=== PATIENT | female | born 1970 | race Caucasian/White ===

== ENCOUNTER 2016-11-20 14:20 | Outpatient (CLI) | payer BC | END 2016-11-20 14:21 | disposition home or self-care (01) | DX: Z12.31 Encounter for screening mammogram for malignant neoplasm of breast (principal) ==

== ENCOUNTER 2018-03-26 15:43 | Outpatient (CLI) | payer BC ==
--- NOTE | 2018-03-31 11:59 | Mammography Report ---
DIGITAL SCREENING MAMMOGRAM: 03/26/2018 CLINICAL INDICATION: A 47-year-old for screening. COMPARISON: 11/2016, 07/2015, 07/2013, 06/2012. TECHNIQUE: Routine CC and MLO projections were obtained of the breasts. FINDINGS: Scattered fibroglandular tissue is present within the breasts. There are no dominant masses, suspicious microcalcifications, or secondary signs of malignancy. In comparison to the previous studies, there are no significant changes. IMPRESSION: NO MAMMOGRAPHIC EVIDENCE OF MALIGNANCY. NO SIGNIFICANT INTERVAL CHANGES. RECOMMENDATION: Screening mammography is recommended annually. BIRADS CATEGORY 1 - NEGATIVE. STANDARD QUALIFYING STATEMENTS: 1. This examination was reviewed with the aid of Computed-Aided Detection (CAD). 2. A negative or benign imaging report should not delay biopsy if clinically suspicious findings are present. Consider surgical consultation if warranted. More than 5% of cancers are not identified by imaging. 3. Dense breasts may obscure an underlying neoplasm. TD: 03/31/2018 11:45
== END 2018-03-26 15:44 | disposition home or self-care (01) ==
LOC: DI.N 15:43
PROVIDERS: ATTEND Physician Assistant Medical
DX: Z12.31 Encounter for screening mammogram for malignant neoplasm of breast (principal)
CPT/HCPCS: 77067

== ENCOUNTER 2019-05-15 10:15 | Outpatient (CLI) | payer OTHER ==
--- NOTE | 2019-05-15 15:25 | XRAY Report ---
Reason: LOW BACK PAIN,CHRONIC..PER ORDER 4VIEW Procedure Date: 05/15/2019 Accession Number: [id number] / [id number] Procedure: XR - Lumbar Spine Complete CPT Code: FULL RESULT: EXAM: LUMBOSACRAL SPINE RADIOGRAPHY EXAM DATE: 05/15/2019 11:25 AM. CLINICAL HISTORY: Chronic low back pain. COMPARISONS: None. TECHNIQUE: 4 views. FINDINGS: Alignment: Mild levoconvex scoliosis. The Vides angle from T11-L4 is approximately 9 degrees. Bones: Five awg-ovy-rrozfts lumbar vertebral bodies are present. No fractures or bone lesions. Disks: Mild to moderate L5-S1 disk space narrowing. Facets: L4-L5 and L5-S1 facet arthropathy. Sacroiliac Joints: Unremarkable. Soft Tissues: Normal. The visualized bowel gas pattern is normal. IMPRESSION: 1. Mild levoconvex scoliosis. 2. Mild to moderate L5-S1 disk space narrowing. 3. L4-L5 and L5-S1 facet arthropathy. RADIA
== END 2019-05-15 10:16 | disposition home or self-care (01) ==
LOC: DI 10:15
PROVIDERS: ATTEND Family Medicine
DX: M48.07 Spinal stenosis, lumbosacral region (principal); M41.86 Other forms of scoliosis, lumbar region
CPT/HCPCS: 72110

== ENCOUNTER 2019-06-08 08:53 | Emergency (ER) | payer BC, OTHER ==
[2019-06-08 09:03] VITALS: BP 195/110
--- NOTE | 2019-06-08 09:08 | ED Physician Documentation ---
PD HPI SKIN - Stated complaint Stated Complaint: LT ANKLE BITE - Chief complaint Chief Complaint: General - History obtained from History obtained from: Patient - History of Present Illness Timing - onset: How many days ago (few) Timing - duration: Days (few) Timing - details: Gradual onset, Still present Location: LLE (medial ankle with redness initially, that then expanded to demarcated redness with swelling about 2 cm diameter. No drainage. No fluctuance. Thought it might be bugbite. Not aware of bite per se.) Quality / character: Itchy, Burning, Discolored (red). No: Vesicular, Draining Associated symptoms: No: Fever, Myalgias, N/V/D Contributing factors: No: Exposed to Poison janet/oak, Insect bite /sting (did not get bug bite per se that she is aware of.) Similar symptoms before: Has not had sx before Recently seen: Not recently seen Review of Systems Constitutional: denies: Fever, Chills, Myalgias Cardiac: denies: Chest pain / pressure, Palpitations Respiratory: denies: Dyspnea, Cough GI: denies: Nausea, Vomiting PD PAST MEDICAL HISTORY - Past Medical History Past Medical History: No - Present Medications Home Medications: Ambulatory Orders Medication Instructions Recorded Confirmed Betamethasone Dipropionate 1 applic TP TID #15 cream..g. 06/08/19 Doxycycline Hyclate 100 mg PO BID #20 capsule 06/08/19 - Allergies Allergies/Adverse Reactions: Allergies Allergy/AdvReac Type Severity Reaction Status Date / Time Unable to Assess Allergy Verified 06/08/19 09:03 PD ED PE NORMAL - Vitals Vital signs reviewed: Yes - General General: Alert and oriented X 3, No acute distress, Well developed/nourished - HEENT HEENT: Ears normal, Pharynx benign - Neck Neck: Supple, no meningeal sign, No adenopathy - Cardiac Cardiac: RRR, No murmur - Respiratory Respiratory: Clear bilaterally - Abdomen Abdomen: Soft, Non tender - Extremities Extremities: Other (left medial ankle with redness and some swelling with demarcated edge of the redness in round shape. 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, No motor deficit, No sensory deficit Eye Opening: Spontaneous Motor: Obeys Commands Verbal: Oriented GCS Score: 15 - Psych Psych: Normal mood PD ED PE EXPANDED - General General: Alert, No acute distress, Well developed/nourished, Disheveled, poorly kept Results - Vitals Vitals: Vital Signs - 24 hr 06/08/19 09:02 Temperature 36.1 C L Heart Rate 82 Respiratory 20 Rate Blood Pressure 195/110 H O2 Saturation 99 Oxygen O2 Source Room air PD MEDICAL DECISION MAKING - ED course Complexity details: considered differential, d/w patient Departure - Departure Disposition: Home, Self Care Clinical Impression: Insect bite or sting Condition: Stable Record reviewed to determine appropriate education?: Yes Instructions: ED Bite Sting Insect Local Allergic React Follow-Up: Jany Adams PA-C [Primary Care Provider] - Prescriptions: Betamethasone Dipropionate 1 applic TP TID #15 cream..g. Doxycycline Hyclate 100 mg PO BID #20 capsule Comments: This looks like a local reaction or venom effect. I do not get a sense of infection at this time. Continue some Benadryl her hand antihistamine. You can try a stronger local steroid such as betamethasone. Watch for signs of expanding redness swelling or red streaks from this point. If it does have expanding symptoms, then consider an infection developing and add the doxycycline antibiotic. I would not use antibiotic at this point. Local re action or venom effect can often peak at 3 to 5 days and last for a couple of weeks for the redness to diminish. Discharge Date/Time: 06/08/19 09:31
== END 2019-06-08 09:31 | disposition home or self-care (01) ==
LOC: ED 08:53
DX: S90.562A Insect bite (nonvenomous), left ankle, initial encounter (principal)
CPT/HCPCS: 99282; 99284

== ENCOUNTER 2021-03-15 12:22 | Outpatient (CLI) | payer BC ==
--- NOTE | 2021-03-16 12:19 | Mammography Report ---
BILATERAL DIGITAL SCREENING MAMMOGRAM 3D/2D: 03/15/2021 CLINICAL: Routine screening. Comparison is made to exams dated: 03/26/2018 mammogram and 11/20/2016 mammogram - [facility]. There are scattered fibroglandular elements in both breasts. No significant masses, calcifications, or other findings are seen in either breast. There has been no significant interval change. IMPRESSION: NEGATIVE There is no mammographic evidence of malignancy. A 1 year screening mammogram is recommended. This exam was interpreted at Station ID: [id number]. NOTE: For mammograms, a report in lay terms will be sent to the patient. Approximately 15% of breast malignancies will not be visualized mammographically. In the management of a palpable breast mass, a negative mammogram must not discourage biopsy of a clinically suspicious lesion. Electronically Signed By: Jagjit Etienne M.D. ar/penrad:03/15/2021 13:31:17 ACR BI-RADS Category 1: Negative 3341F PARENCHYMAL PATTERN: (A) - The breast(s) demonstrate(s) scattered fibroglandular densities. BI-RADS CATEGORY: (1) - 1 RECOMMENDATION: (ANNUAL) - Recommend routine annual screening mammography. [id number] 1 year screening LATERALITY: (B)
== END 2021-03-15 12:23 | disposition home or self-care (01) ==
LOC: DI.N 12:22
DX: Z12.31 Encounter for screening mammogram for malignant neoplasm of breast (principal)

== ENCOUNTER 2021-04-28 11:07 | Day surgery (SDC) | payer BC ==
[2021-04-28] MEDS ORDERED: LACTATED RINGERS 1,000 ML IV ONE ×2 (11:58→14:25)
[2021-04-28] MEDS ORDERED: fentaNYL 250 MCG/5 ML VIAL ONE (13:48)
[2021-04-28] MEDS ORDERED: MIDAZOLAM 2 MG/2 ML VIAL ONE ×2 (13:48→13:57)
[2021-04-28 14:45] VITALS: BP 120/75
== END 2021-04-28 11:08 | disposition home or self-care (01) ==
LOC: SDS 11:07
PROVIDERS: ATTEND Surgery
DX: Z12.11 Encounter for screening for malignant neoplasm of colon (principal); K57.30 Diverticulosis of large intestine without perforation or abscess without bleeding; Z87.891 Personal history of nicotine dependence
CPT/HCPCS: 45378; J3010; J7120

== ENCOUNTER 2023-01-17 15:25 | Outpatient (CLI) | payer OTHER ==
--- NOTE | 2023-01-18 12:03 | Mammography Report ---
BILATERAL DIGITAL SCREENING MAMMOGRAM 3D/2D: 01/17/2023 CLINICAL: Routine screening. Comparison is made to exams dated: 03/15/2021 mammogram, 03/26/2018 mammogram, 11/20/2016 mammogram, 07/13 mammogram, 07/29/2013 mammogram, and 06/11/2012 mammogram - [facility]. There are scattered areas of fibroglandular density in both breasts (category b / 25%-50% glandular t issue). No significant masses, calcifications, or other findings are seen in either breast. There has been no significant interval change. IMPRESSION: NEGATIVE There is no mammographic evidence of malignancy. A 1 year screening mammogram is recommended. Based on the Tyrer Cuzick model (a risk assessment model) the patients lifetime risk is 6.2% and her 10 year risk is 1.7%. According to the ACR, ACS, and NCCN guidelines, an annual breast MRI exam jesus g with mammogram is recommended if the patients lifetime risk is 20% or greater. This exam was interpreted at Station ID: [id number]. NOTE: For mammograms, a report in lay terms will be sent to the patient. Approximately 15% of breast malignancies will not be visualized mammographically. In the management of a palpable breast mass, a negative mammogram must not discourage biopsy of a clinically suspicious lesion. Electronically Signed By: Tomas [email or web address]/[email or web address]:01/18/2023 08:42:54 letter sent: No_Letter ACR BI-RADS Category 1: Negative 3341F PARENCHYMAL PATTERN: (A) - The breast(s) demonstrate(s) scattered fibroglandular densities. BI-RADS CATEGORY: (1) - 1 Mammogram [id number] 1 year screening LATERALITY: (B)
== END 2023-01-17 15:26 | disposition home or self-care (01) ==
LOC: DI.N 15:25
DX: Z12.31 Encounter for screening mammogram for malignant neoplasm of breast (principal)

== ENCOUNTER 2024-04-08 14:40 | Emergency (ER) | payer OTHER ==
--- NOTE | 2024-04-08 15:19 | ED Physician Documentation ---
PD HPI NVD - Stated complaint Stated Complaint: N/V/D - Chief complaint Chief Complaint: Neuro - History obtained from History obtained from: Patient - History of Present Illness Timing - onset: Today Timing - details: Abrupt onset, Still present (she states was standing at work and had abrupt onset of vertigo, spinning without headache nor other symtoms. It caused marked nausea and repetitive vomiting with any mild head movemnt. No VALENTE, injury, visual loss, focal weakenssses.) Associated symptoms: Dizzy. No: Fever, Abdominal pain, Near syncope / syncope, Loss of appetite Contributing factors: Other (has had some pressure/pain feeling last day or so right periorbital. Some feeling of pressure. No ear pain. Mild trouble hearing. No cough.). No: Sick contact, Recent antibiotics, Alcohol use (nor any new meds.) Improved by: Laying still Worsened by: Moving (of head) Similar symptoms before: Has not had sx before Recently seen: Not recently seen Review of Systems Constitutional: denies: Fever, Chills Ears: denies: Tinnitus/ringing Nose: reports: Sinus pressure / pain. denies: Rhinorrhea / runny nose, Congestion Throat: denies: Sore throat Neurologic: denies: Altered mental status, Headache, Head injury PD PAST MEDICAL HISTORY - Past Medical History Past Medical History: Yes Cardiovascular: Hypertension, High cholesterol Respiratory: None Endocrine/Autoimmune: HyPOthyroidism GI: None : None HEENT: None Psych: None Musculoskeletal: None Derm: None - Past Surgical History Past Surgical History: Yes /CONTRACT [employer]: Tubal ligation HEENT: Tonsil/Adenoidectomy - Present Medications Home Medications: Ambulatory Orders Medication Instructions Recorded Confirmed LORazepam [Ativan] 1 mg PO Q6H PRN #10 tablet 04/08/24 Meclizine HCl 25 mg PO Q8H PRN #30 tab 04/08/24 - Allergies Allergies/Adverse Reactions: Allergies Allergy/AdvReac Type Severity Reaction Status Date / Time metoprolol [From Toprol XL] AdvReac Hives Verified 04/08/24 14:44 - Social History Does the pt smoke?: No Smoking Status: Never smoker Does the pt drink ETOH?: Yes Does the pt have substance abuse?: No - Immunizations Immunizations are current?: Yes - POLST Patient has POLST: No PD ED PE NORMAL - Vitals Vital signs reviewed: Yes - General General: Alert and oriented X 3, Well developed/nourished, Other (appears very uncomfortable, guarding movement of head, holding emesis bag, with dry heaving with slight head movement. 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, No motor deficit, No sensory deficit, Normal speech Eye Opening: Spontaneous Motor: Obeys Commands Verbal: Oriented GCS Score: 15 Results - Vitals Vitals: Vital Signs - 24 hr 04/08/24 04/08/24 04/08/24 14:44 15:21 17:00 Temperature 36.8 C Heart Rate 72 60 68 Respiratory 16 20 20 Rate Blood Pressure 160/77 H 157/89 H 145/67 H O2 Saturation 700 H 100 98 04/08/24 18:07 Temperature Heart Rate 71 Respiratory 20 Rate Blood Pressure 149/67 H O2 Saturation 100 Oxygen O2 Source Room air - Labs Labs: Laboratory Tests 04/08/24 04/08/24 15:15 15:15 WBC 11.0 H RBC 4.45 Hgb 12.4 Hct 39.0 MCV 87.6 MCH 27.9 MCHC 31.8 L RDW 13.7 Plt Count 234 MPV 12.9 H Neut # (Auto) 7.7 H Lymph # (Auto) 2.1 Whitfield # (Auto) 0.9 Eos # (Auto) 0.3 Baso # (Auto) 0.1 Absolute Nucleated RBC 0.00 Nucleated RBC % 0.0 Sodium 138 Potassium 3.8 Chloride 102 Carbon Dioxide 25 Anion Gap 11.0 BUN 21 H Creatinine 0.7 Estimated GFR (MDRD) 87 L Glucose 119 H Calcium 10.2 Magnesium 1.8 Total Bilirubin 0.3 AST 18 ALT 15 Alkaline Phosphatase 86 Total Protein 7.9 Albumin 4.5 Globulin 3.4 Albumin/Globulin Ratio 1.3 Lipase 28 Vitamin B12 2098 H PD Medical Decision Making - ED course Complexity details: reviewed results (lytes, cbc, sugar are okay. Her symptoms c/s peripheral vertigo. Onset without notable abrupt movement but then head movement triggers, holding still abates. No focal deficits. Nystagmus with head movement. HINTS hard to perform. ), re-evaluated patient (improved significantly with IV fluids, Ativan and PO Meclizine. Onset was not with abrupt movement and has had mild sinus symptoms the past day, so I think is not otolithic but fluid pressure in labryth. Did not try Eply. ), considered differential, d/w patient Departure - Departure Disposition: 01 Home, Self Care Clinical Impression: Acute severe vertigo, Nausea and vomiting Condition: Stable Record reviewed to determine appropriate education?: Yes Instructions: ED Vertigo Unspecified Follow-Up: Jany Adams PA-C [Primary Care Provider] - Prescriptions: LORazepam [Ativan] 1 mg PO Q6H PRN #10 tablet PRN Reason: Vertigo Meclizine HCl 25 mg PO Q8H PRN #30 tab PRN Reason: Vertigo Comments: Your blood tests which included a blood count and white count electrolytes kidney function and blood sugar appear normal. Your symptoms sound consistent with peripheral vertigo (from the inner ear) rather than the balance center in the brain. It is good that it has improved with the motion sickness medicine. There may be some inflammation or congestion in the inner ear leading to this. I would suggest Claritin or Zyrtec type antihistamines twice daily for the next several days to week. Use the meclizine motion sickness medicine every 6-8 hours if needed for vertigo. If you have severe vertigo again and not relieved by the meclizine (which can be taken as 1 to 2 tablets every 6-8 hours), then I did write for lorazepam which is another category of medicine that can be used for vertigo. You were given a dose of a steroid here that should last for couple of days to help with any inflammation as well. Recheck if not improving well over the next few days and resolved by 4 to 5 days. Return if worse again or other symptoms develop. Forms: PCP List Discharge Date/Time: 04/08/24 18:21
[2024-04-08 16:13] LABS: BASOPHILS # (AUTO) 0.1 10^3/uL (0.0-0.1); BASOPHILS % (AUTO) 0.5 %; EOSINOPHILS # (AUTO) 0.3 10^3/uL (0.0-0.7); EOSINOPHILS % (AUTO) 2.3 %; HGB - HEMOGLOBIN 12.4 g/dL (12.0-16.0); LYMPHOCYTES # (AUTO) 2.1 10^3/uL (1.5-3.5); LYMPHOCYTES % (AUTO) 18.7 %; MEAN CORPUSCULAR HEMOGLOBIN 27.9 pg (27.0-31.0); MEAN CORPUSCULAR HGB CONC 31.8 g/dL (32.0-36.0); MEAN CORPUSCULAR VOLUME 87.6 fL (81.0-99.0); MEAN PLATELET VOLUME 12.9 fL (7.9-10.8); MONOCYTES # (AUTO) 0.9 10^3/uL (0.0-1.0); MONOCYTES % (AUTO) 7.8 %; NEUTROPHILS # (AUTO) 7.7 10^3/uL (1.5-6.6); NEUTROPHILS % (AUTO) 70.3 %; PLT - PLATELET COUNT 234 10^3/uL (130-450); RED BLOOD COUNT 4.45 10^6/uL (4.20-5.40); RED CELL DISTRIBUTION WIDTH 13.7 % (12.0-15.0)
[2024-04-08] MEDS: MECLIZINE 12.5 MG TABLET PO STA (16:18)
[2024-04-08] MEDS: SODIUM CHLORIDE 0.9% 1,000 ML IV STA (16:18)
[2024-04-08] MEDS: LORazepam 2 MG/ML VIAL IVP STA (16:19)
[2024-04-08] MEDS: ONDANSETRON 4 MG/2 ML VIAL IVP STA (16:19)
[2024-04-08 16:53] LABS: ALBUMIN 4.5 g/dL (3.2-5.5); ALBUMIN/GLOBULIN RATIO 1.3 (1.0-2.2); BILIRUBIN,TOTAL 0.3 mg/dL (0.2-1.0); CALCIUM 10.2 mg/dL (8.5-10.3); CREATININE 0.7 mg/dL (0.6-1.3); MAGNESIUM 1.8 mg/dL (1.7-2.3); POTASSIUM 3.8 mmol/L (3.5-4.5); TOTAL PROTEIN 7.9 g/dL (6.4-8.9)
[2024-04-08] MEDS: DEXAMETHASONE 10 MG/ML VIAL IVP STA (17:59)
[2024-04-08 18:13] VITALS: BP 149/67; O2SAT 100
== END 2024-04-08 18:21 | disposition home or self-care (01) ==
LOC: ED 14:40
DX: R42 Dizziness and giddiness (principal); R11.2 Nausea with vomiting, unspecified; I10 Essential (primary) hypertension; E78.00 Pure hypercholesterolemia, unspecified; E03.9 Hypothyroidism, unspecified
CPT/HCPCS: 36415; 80053; 82607; 83690; 83735; 85025; 96374; 96375; 99283; 99284; A9270; J2060

== ENCOUNTER 2024-06-17 07:57 | Outpatient (CLI) | payer OTHER | END 2024-06-17 07:58 | disposition home or self-care (01) | LOC: DI 07:57 | PROVIDERS: ATTEND Physician Assistant Medical | DX: R01.1 Cardiac murmur, unspecified (principal) | CPT/HCPCS: 93307 ==

== ENCOUNTER 2024-07-10 14:48 | Outpatient (CLI) | payer OTHER ==
--- NOTE | 2024-07-14 08:10 | Mammography Report ---
BILATERAL DIGITAL SCREENING MAMMOGRAM 3D/2D: 07/10/2024 CLINICAL: Routine screening. Comparison is made to exams dated: 03/15/2021 mammogram, 01/17/2023 mammogram, 03/26/2018 mammogram, 11/20 mammogram, and 08/01/2015 mammogram - [facility]. There are scattered areas of fibroglandular density in both breasts (category b / 25%-50% glandular t issue). No significant masses, calcifications, or other findings are seen in either breast. There has been no significant interval change. IMPRESSION: NEGATIVE There is no mammographic evidence of malignancy. A 1 year screening mammogram is recommended. Based on the Tyrer Cuzick model (a risk assessment model) the patient's lifetime risk is 6.0% and her 10 year risk is 1.9%. According to the ACR, ACS, and NCCN guidelines, an annual breast MRI exam jesus g with mammogram is recommended if the patient's lifetime risk is 20% or greater. This exam was interpreted at Station ID: [id number]. NOTE: For mammograms, a report in lay terms will be sent to the patient. Approximately 15% of breast malignancies will not be visualized mammographically. In the management of a palpable breast mass, a negative mammogram must not discourage biopsy of a clinically suspicious lesion. Electronically Signed By: Betsey banda/supriya:07/10/2024 16:49:27 letter sent: No_Letter ACR BI-RADS Category 1: Negative 3341F PARENCHYMAL PATTERN: (A) - The breast(s) demonstrate(s) scattered fibroglandular densities. BI-RADS CATEGORY: (1) - 1 RECOMMENDATION: (ANNUAL) - Recommend routine annual screening mammography. [id number] 1 year screening LATERALITY: (B)
== END 2024-07-10 14:49 | disposition home or self-care (01) ==
LOC: DI 14:48
DX: Z12.31 Encounter for screening mammogram for malignant neoplasm of breast (principal); R92.323 Mammographic fibroglandular density, bilateral breasts